=== PATIENT | female | born 1990 | race Caucasian/White ===

== ENCOUNTER 2018-12-08 10:34 | Emergency (ER) | payer MEDICAID ==
[~2018-12-08] VITALS: Ht 154.9 cm; Wt 75.3 kg
[2018-12-08 10:43] VITALS: Ht 154.9 cm; Wt 75.3 kg
[2018-12-08 13:49] VITALS: BP 117/77
== END 2018-12-08 13:49 | disposition home or self-care (01) ==
LOC: ED 10:34
DX: J06.9 Acute upper respiratory infection, unspecified (principal)

== ENCOUNTER 2019-02-03 17:36 | Emergency (ER) | payer MEDICAID ==
[~2019-02-03] VITALS: Ht 154.9 cm; Wt 75.7 kg
[2019-02-03 17:43] VITALS: Ht 154.9 cm; Wt 75.7 kg
[2019-02-03 21:37] VITALS: BP 113/61
== END 2019-02-03 21:37 | disposition home or self-care (01) ==
LOC: ED 17:36
DX: S50.02XA Contusion of left elbow, initial encounter (principal); S40.012A Contusion of left shoulder, initial encounter; S90.31XA Contusion of right foot, initial encounter; M25.552 Pain in left hip; Y04.0XXA Assault by unarmed brawl or fight, initial encounter; Y93.89 Activity, other specified; Y92.89 Other specified places as the place of occurrence of the external cause; Y99.8 Other external cause status